=== PATIENT | female | born 1995 | race African-American/Black ===

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

== ENCOUNTER 2017-07-26 21:01 | Emergency (ER) | payer OTHER ==
[~2017-07-26] VITALS: Ht 163.8 cm; Wt 71.6 kg
[2017-07-26 21:08] VITALS: TEMP 37.1; Ht 163.8 cm; Wt 71.6 kg
[2017-07-26] MEDS ORDERED: MoRPHine SULFATE 4 MG/ML 1 ML CARP\\VIAL IV ONE (21:30)
--- NOTE | 2017-07-26 22:08 | DIAGNOSTIC IMAGING REPORT ---
RIGHT ANKLE MIN 3 VIEWS ROUTINE HISTORY: 21 years-old Female acute right ankle pain without reported trauma. COMPARISON: None available TECHNIQUE: 3 views of the right ankle FINDINGS: There is no acute fracture, dislocation or significant degenerative changes. No osteochondral defect identified. There is moderate anterolateral soft tissue swelling with small joint effusion. IMPRESSION: 1. No acute bony abnormality. 2. Moderate anterolateral soft tissue swelling with small joint effusion. The above report was generated using voice recognition software. It may contain grammatical, syntax or spelling errors. Electronically signed by: Mart Goldstein M.D. 07/26/2017 10:07 PM Dictated Date/Time: 07/26/2017 10:05 PM
[2017-07-26] MEDS ORDERED: IBUP-1451 PO (22:28)
[2017-07-26 22:42] VITALS: BP 150/95; PULSE 98; O2SAT 98
--- NOTE | 2017-07-27 14:35 | EMERGENCY ROOM VISIT NOTE ---
ED Visit Note First contact with patient: 21:05 CHIEF COMPLAINT: Ankle pain HISTORY OF PRESENT ILLNESS: This 21-year-old female patient presents to the emergency department via EMS after sustaining an injury to the right ankle and foot with a twisting, inversion motion while playing volleyball just prior to arrival. She states that she was doing a jump serve, and as she came down she twisted her ankle about 30 minutes ago. The patient complains of pain along the outside of the ankle. The patient is without pain of the foot. The patient rates the pain as dull and 7/10. The patient is not able to bear weight on the foot. Constant pain, worse with movement, weight bearing, and the dependent position. No knee pain, the patient is able to move their toes. No numbness or weakness of the foot, no laceration. The patient has not had a previous fracture to this ankle. The patient has had morphine prehospital for the pain. The patient denies any other injury. REVIEW OF SYSTEMS: A 6 system review of systems was completed with positives and pertinent negatives listed in the HPI. ALLERGIES: No known allergies MEDICATIONS: No chronic medications PMH: Otherwise healthy SOCIAL HISTORY: Student and lives locally PHYSICAL EXAM: Vital Signs: Reviewed Nurse's notes, vital signs stable. GENERAL : Female, no acute distress, but appears in pain, well-developed, well- nourished. MENTAL STATUS: Alert, oriented to person place and time, and cooperative. MUSCULOSKELETAL: The right ankle is swollen and tender over the lateral malleolus, but the skin is intact and there is no ligamentous instability. There is no fifth metatarsal tenderness. There is no tenderness over the rest of the foot. There is no calf or tibia/fibular tenderness. There is no visual deformity. The foot and toes are warm and well-perfused. Dorsalis pedis pulse 2+. Sensation to pain and light touch is intact. Capillary refill less than 2 seconds. RIGHT ANKLE MIN 3 VIEWS ROUTINE HISTORY: 21 years-old Female acute right ankle pain without reported trauma. COMPARISON: None available TECHNIQUE: 3 views of the right ankle FINDINGS: There is no acute fracture, dislocation or significant degenerative changes. No osteochondral defect identified. There is moderate anterolateral soft tissue swelling with small joint effusion. IMPRESSION: 1. No acute bony abnormality. 2. Moderate anterolateral soft tissue swelling with small joint effusion. EMERGENCY DEPARTMENT COURSE: Physical exam and history were performed. Nursing notes and EMR were reviewed. The patient appears to have injured herself playing volleyball just prior to arrival. She was given a small amount of morphine here in the department as she has significant swelling of the ankle. Ice packs were placed and x-ray was performed. X-ray does not show evidence of acute fracture or dislocation. The patient was placed in a gel ankle splint and given crutches. She is to follow with orthopedics for her symptoms. She was given additional discharge instructions as below and was pleased with plan of care. Current/Historical Medications Scheduled Control Pills ( Control Pills), 1 TAB PO QPM Scheduled PRN Ibuprofen Tab (Motrin), 800 MG PO Q8H PRN for Pain Allergies Coded Allergies: No Known Allergies (Unverified , 07/26/17) Vital Signs Date Time Temp Pulse Resp B/P (MAP) Pulse Ox O2 Delivery O2 Flow Rate FiO2 07/26/17 22:42 98 18 150/95 98 Room Air 07/26/17 21:08 37.1 94 20 140/89 97 Room Air Medications Administered Medications (Trade) Dose Ordered Sig/Pedrito Route Start Time Stop Time Status Last Admin Dose Admin Morphine Sulfate (MoRPHine SULFATE INJ) 4 mg NOW ONCE IV 07/26/17 21:30 07/26/17 21:31 DC 07/26/17 21:22 4 MG Departure Information Impression Primary Impression: Injury of left ankle Dispostion Home / Self-Care Condition FAIR Prescriptions Ibuprofen Tab (MOTRIN) 800 Mg Tab 800 MG PO Q8H Y for Pain, #50 TAB Prov: Lb Rankin PA-C 07/26/17 Referrals [facility] (PCP) Gerald Lorenzo, DO Forms HOME CARE DOCUMENTATION FORM, IMPORTANT VISIT INFORMATION Patient Instructions My [facility] Additional Instructions You were seen and evaluated today on an emergency basis only. This is not a substitute for, or an effort to provide, complete comprehensive medical care. It is not possible to recognize and treat all injuries or illnesses in a single emergency department visit. For this reason it is recommended that you followup with Orthopedics, Dr Lorenzo's office, in 1-2 weeks if symptoms persist. Take ibuprofen 800 mg every 8 hours as needed for breakthrough pain. Take this medication with food. Do not take for more than 4 or 5 consecutive days. Use your gel ankle splint and crutches You are welcome to return to the emergency department anytime with new, worsening, or concerning symptoms.
== END 2017-07-26 22:40 | disposition home or self-care (01) ==
LOC: EDBD 21:01 → C.EDC 21:03
DX: S99.911A Unspecified injury of right ankle, initial encounter (principal); X50.0XXA Overexertion from strenuous movement or load, initial encounter; Y93.68 Activity, volleyball (beach) (court); Z79.3 Long term (current) use of hormonal contraceptives

== ENCOUNTER → 2017-08-13 | Outpatient (CLI) | payer OTHER ==
[~2017-08-13] MED LIST changes: -CETI10TA84 PO; +IBUP-1451 PO
--- NOTE | 2017-08-13 09:20 | DIAGNOSTIC IMAGING REPORT ---
RIGHT LOWER EXT JOINT WITHOUT CLINICAL HISTORY: ANKLE SPRAIN AND PAIN Right pain TECHNIQUE: Multi axial MRI acquisition COMPARISON STUDY: None FINDINGS: Findings of moderate generalized soft tissue edematous change. Evidence for bone marrow edema involving the bulk of the talus. Focus of increased activity posterior aspect distal tibia as well as medial malleolus. Subtalar joint appears to be intact. The collateral ligaments are intact. All major ligamentous and tendinous structures appear to be intact. Trace amount of fluid surrounding the peroneal tendon although again this structure appears to be intact. Minimal joint effusion. IMPRESSION: 1. Nonspecific generalized bone marrow edema of the bulk of the talus as well as components of the medial malleolus and posterior tibia. 2. Although given the patient's age this most likely is posttraumatic, possibility of a atypical component of reflex sympathetic dystrophy cannot be entirely excluded. 3. No major ligamentous or tendinous disruption 4. No evidence for significant bony substance loss The above report was generated using voice recognition software. It may contain grammatical, syntax or spelling errors. Electronically signed by: Randal Jones M.D. 08/13/2017 9:18 AM Dictated Date/Time: 08/13/2017 9:12 AM
== END | disposition home or self-care (01) ==
LOC: C.MRI 07:45
PROVIDERS: ATTEND Family Medicine Sports Medicine
DX: S93.431D Sprain of tibiofibular ligament of right ankle, subsequent encounter (principal); M25.571 Pain in right ankle and joints of right foot; X58.XXXD Exposure to other specified factors, subsequent encounter

== ENCOUNTER 2017-10-30 13:20 | Emergency (ER) | payer OTHER ==
[~2017-10-30] VITALS: Ht 165.1 cm; Wt 70.3 kg
[2017-10-30 13:28] VITALS: TEMP 37.2; Ht 165.1 cm; Wt 70.3 kg
[2017-10-30] MEDS ORDERED: KETOROLAC TROMETHAMINE 30 MG/ML VIAL IV STA (13:48)
[2017-10-30] MEDS ORDERED: DEXAMETHASONE INJ 10 MG in SYRINGE 0 ML IV ONE (14:00)
[2017-10-30] MEDS ORDERED: SODIUM CHLORIDE 0.9% 1000ML 1,000 ML IV ONE (14:00)
[2017-10-30 14:13] LABS: BASO % 0.1 %; BASO ABS # 0.01 K/uL (0-0.2); COMPLETE YES; EOS % 0.1 %; HEMATOCRIT 36.5 % (37-47); IG% 0.2 %; LYMPH % 5.7 %; LYMPH ABS # 0.84 K/uL (1.2-3.4); MEAN CELL VOLUME 93.1 fL (80-100); MEAN CORPUSCULAR HEMOGLOBIN 30.9 pg (25-34); MEAN CORPUSCULAR HGB CONC 33.2 g/dl (32-36); MEAN PLATELET VOLUME 9.4 fL (7.4-10.4); NEUT % 86.9 %; PLATELET COUNT 263 K/uL (130-400); RED BLOOD COUNT 3.92 M/uL (4.2-5.4); WHITE BLOOD COUNT 14.76 K/uL (4.8-10.8)
[2017-10-30 14:30] LABS: BUN/CREATININE RATIO 6.8 (10-20); CALCIUM 8.7 mg/dl (8.5-10.1); CREATININE 0.87 mg/dl (0.60-1.20); POTASSIUM 3.5 mmol/L (3.5-5.1)
[2017-10-30] MEDS ORDERED: [UNRECOGNIZED DRUG - OTHER] PO (14:37)
[2017-10-30] MEDS ORDERED: CETI10TA84 PO (14:37)
[2017-10-30] MEDS ORDERED: VNTHFA/IN INH (14:37)
[2017-10-30] MEDS ORDERED: AMOX875T3 PO (15:26)
[2017-10-30 15:53] VITALS: BP 104/53; PULSE 76; O2SAT 95
[2017-10-30 15:58] LABS: INFLUENZA A PCR Neg for Influ A (NEG); INFLUENZA B PCR Neg for Influ B (NEG)
--- NOTE | 2017-10-30 20:24 | EMERGENCY ROOM VISIT NOTE ---
ED Visit Note First contact with patient: 13:34 Chief Complaint: Headache, sore throat and fever. History of Present Illness: Ms. Saleh is a 21-year-old female who ambulates into the ED complaining of headache, sore throat, fever and neck/back pain. Patient reports her symptoms started last night approximately 10 PM. She reports she had a global headache. She describes it as an achy sensation. She reports at that time her headache was 4/10. She did not identify any aggravating or alleviating factors related to the pain. She took ibuprofen and reports going to sleep. She reports taking her temperature last night and it was 102.4 Fahrenheit. This morning when she woke her headache was still present and she noted a sore throat and neck/thoracic/lumbar back achiness. She reports taking ibuprofen and going back to bed. She woke up at 2 and 4 hours later and continued to have the same symptoms. Currently she still complains of a headache. She describes it as global. She describes it as a throbbing achy sensation. She rates her discomfort 8/10. Her pain is nonradiating. She has not identified any aggravating or alleviating factors related to the pain. She has not taken any additional medication since ibuprofen this morning when she woke. Additionally she complains of a sore throat. She describes this as a fullness sensation over the anterior aspect of the throat. She rates this discomfort 4/ 10. The pain is nonradiating. Her pain mildly worsens with swallowing. She is not identified any alleviating factors related to the pain. Additionally she denies of a soreness from the cervical throughout the lumbar back. She rates this discomfort 4/10. She has not identified any aggravating or alleviating factors related to the pain. She denies skin eruptions, skin color changes, recent head trauma, dizziness, lightheadedness, visual changes, hearing changes, ear drainage, voice changes, inability to swallow, painful talking, drooling, neck/back stiffness, cough, wheezing, shortness of breath, abdominal pain, nausea, vomiting, extremity weakness/numbness/tingling. Review of Systems: As noted above in history of present illness. All body systems were reviewed and found to be negative as noted above. Past Medical History: Patient denies. Current Medications: control, Zyrtec, albuterol. Allergies to Medications: Patient denies. 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 Physical Examination: Vital Signs: Date Time Temp Pulse Resp B/P (MAP) Pulse Ox O2 Delivery O2 Flow Rate FiO2 10/30/17 15:53 76 15 104/53 95 10/30/17 15:19 76 15 104/53 95 Room Air 10/30/17 14:10 95 16 115/70 98 Room Air 10/30/17 13:28 37.2 117 18 119/69 97 Room Air GENERAL: 21-year-old female in mild distress due to pain, nontoxic-appearing, febrile and hemodynamically stable. NEUROLOGICAL: Awake, alert and oriented to person, place and time. Answering questions appropriately and following commands. Normal gait. Good hand eye coordination. SKIN: Warm, dry and pink. No soft tissue eruptions or trauma noted. HEENT: Atraumatic and normocephalic. No erythema or tenderness over the frontal or maxillary sinuses. External ears are nontender. Auditory canals are pink and patent. Tympanic membranes are pearly peters with normal light reflex; no erythema or bulging. PERRLA. Sclera white and conjunctiva pink without drainage. No drainage from naris. Airway patent. Uvula was midline and no abscesses are seen. Posterior pharyngeal area is moderately erythematous and edematous. Bilateral tonsillar hypertrophy with puslike exudates. Speech is soft but normal and clear. Mild anterior cervical lymphadenopathy. Trachea midline. No jugular venous distention. No laryngeal tenderness. BACK: Mild tenderness throughout the paraspinous musculature in the cervical, thoracic and lumbar spine. No nuchal rigidity or meningismus. No palpable muscle spasm. Full range of motion of the cervical spine. No CVA tenderness. THORAX: Lungs sounds are clear to auscultation and equal bilaterally with symmetrical chest wall. No wheezing, rales or rhonchi. HEART: Tachycardic rate and rhythm. No gallops, rubs or murmurs are appreciated. ABDOMEN: Flat, soft and nontender. Positive bowel sounds in all quadrants. No guarding, rigidity or organomegaly. EXTREMITIES: Moves all extremities well on command and with purpose. All distal neurovascular statuses are intact and equal bilaterally. No calf tenderness or cords. ED Course: Patient is assessed as noted above. Patient's medication list was reviewed. Laboratory Testing: Test 10/30/17 14:00 10/30/17 14:08 Range/Units Influenza Type A (RT-PCR) Neg for Influ A NEG Influenza Type A Antigen Neg for Influ A NEG Influenza Type B Antigen Neg for Influ B NEG Influenza Type B (RT-PCR) Neg for Influ B NEG White Blood Count 14.76 4.8-10.8 K/uL Red Blood Count 3.92 4.2-5.4 M/uL Hemoglobin 12.1 12.0-16.0 g/dL Hematocrit 36.5 37-47 % Mean Corpuscular Volume 93.1 80-100 fL Mean Corpuscular Hemoglobin 30.9 25-34 pg Mean Corpuscular Hemoglobin Concent 33.2 32-36 g/dl Platelet Count 263 130-400 K/uL Mean Platelet Volume 9.4 7.4-10.4 fL Neutrophils (%) (Auto) 86.9 % Lymphocytes (%) (Auto) 5.7 % Monocytes (%) (Auto) 7.0 % Eosinophils (%) (Auto) 0.1 % Basophils (%) (Auto) 0.1 % Neutrophils # (Auto) 12.83 1.4-6.5 K/uL Lymphocytes # (Auto) 0.84 1.2-3.4 K/uL Monocytes # (Auto) 1.04 0.11-0.59 K/uL Eosinophils # (Auto) 0.01 0-0.5 K/uL Basophils # (Auto) 0.01 0-0.2 K/uL RDW Standard Deviation 45.1 36.4-46.3 fL RDW Coefficient of Variation 13.4 11.5-14.5 % Immature Granulocyte % (Auto) 0.2 % Immature Granulocyte # (Auto) 0.03 0.00-0.02 K/uL Sodium Level 132 136-145 mmol/L Potassium Level 3.5 3.5-5.1 mmol/L Chloride Level 103 98-107 mmol/L Carbon Dioxide Level 27 21-32 mmol/L Anion Gap 2.0 3-11 mmol/L Blood Urea Nitrogen 6 7-18 mg/dl Creatinine 0.87 0.60-1.20 mg/dl Est Creatinine Clear Calc Drug Dose 102.3 ml/min Estimated GFR () 111.9 Estimated GFR (Non- 96.6 BUN/Creatinine Ratio 6.8 10-20 Random Glucose 96 70-99 mg/dl Calcium Level 8.7 8.5-10.1 mg/dl Monoscreen NEG NEG Group A Streptococcus Screen: Positive. Patient was hydrated with normal saline and received 30 mg of Toradol IV for fever and pain and 10 mg of Decadron IV for tonsillar swelling. Patient was reassessed multiple times during her stay in the emergency department. Patient's case was reviewed with Dr. Manzanares; we agreed on diagnostic approach, treatment, disposition and plan. Patient was educated about today's findings and instructed on her treatment plan ; she verbalized understanding and agreement with this plan. Clinical Impression: Acute streptococcal pharyngitis. Disposition: Patient discharged home in stable condition; prior to departure she was reassessed and subjectively reported she was feeling much better and rated her discomfort 4/10. Plan: Patient was encouraged to alternate ibuprofen and acetaminophen every 3 hours as needed for pain or fevers. Patient was prescribed amoxicillin 875 mg 3 times a day for 10 days. Patient was encouraged to stay well-hydrated with increased clear fluids. Patient was encouraged use a liquid or mechanical soft diet until resolution of throat discomfort. Patient was encouraged to follow-up at [facility] for recheck. Patient was encouraged return ED for worsening/uncontrolled pain, inability to swallow, uncontrolled fevers, vomiting, drooling, painful talking or any new/ concerning symptoms.
== END 2017-10-30 15:54 | disposition home or self-care (01) ==
LOC: C.EDB 13:21 → C.EDC 15:54
DX: J02.0 Streptococcal pharyngitis (principal); Z79.3 Long term (current) use of hormonal contraceptives

== ENCOUNTER 2018-02-20 16:19 | Emergency (ER) | payer OTHER ==
[~2018-02-20] VITALS: Ht 165.1 cm; Wt 73.4 kg
[~2018-02-20 16:19] MED LIST changes: +CETI10TA84 PO; -IBUP-1451 PO; +VNTHFA/IN INH; +[UNRECOGNIZED DRUG - OTHER] PO
[2018-02-20 16:29] VITALS: BP 158/90; PULSE 83; TEMP 36.7; O2SAT 98; Ht 165.1 cm; Wt 73.4 kg
[2018-02-20] MEDS ORDERED: ACETAMINOPHEN 500 MG TAB PO ONE (18:30)
[2018-02-20] MEDS ORDERED: MoRPHine SULFATE 4 MG/ML 1 ML CARP\\VIAL ONE (19:35)
--- NOTE | 2018-02-20 22:14 | EMERGENCY ROOM VISIT NOTE ---
History First contact with patient: 17:41 Chief Complaint: HEADACHE Stated Complaint: PRESSURE BEHIND EYES, MIGRAINE, NAUSEA, VOMITING History of Present Illness The patient is a 22 year old female who presents to the Emergency Room with complaints of headache. She had recently started a course of Augmentin 3 days ago for presumed sinusitis from [facility]. Since starting the antibiotic she developed a sudden onset headache which started a day ago and has not gotten better. She reports the headache is bilateral and frontal. It is sharp and 8/10 in severity, and does not radiate. She has associated nausea but has not vomited. She denies any history of blood thinner use or previous headaches. She is otherwise healthy. Nothing has made her symptoms better or worse. She denies any numbness or tingling in the arms or legs. Review of Systems See HPI for pertinent positives & negatives. A total of 10 systems reviewed and were otherwise negative. Past Medical/Surgical History Medical Problems: (1) No Known Active Medical Problems Family History No pertinent FHx Social History Smoking Status: Never Smoker Alcohol Use: occasionally Housing Status: lives with roommate Occupation Status: [employer] student Current/Historical Medications Scheduled Control Pills ( Control Pills), 1 TAB PO QPM Cetirizine (Zyrtec), 10 MG PO QPM [Acid Reflux Rx], 1 TAB PO DAILY Scheduled PRN Albuterol Hfa (Ventolin Hfa), 2-4 PUFFS INH Q6H PRN for SOB/Wheezing Allergies NKDA Physical Exam Vital Signs Date Time Temp Pulse Resp B/P (MAP) Pulse Ox O2 Delivery O2 Flow Rate FiO2 02/20/18 16:29 36.7 83 20 158/90 98 Room Air Physical Exam GENERAL: Awake, alert, well-appearing, in no acute distress HENT: Normocephalic, atraumatic. Oropharynx unremarkable. EYES: Normal conjunctiva. Sclera non-icteric. NECK: Supple. No nuchal rigidity. FROM. No JVD. RESPIRATORY: Clear to auscultation. CARDIAC: Regular rate, normal rhythm. Extremities warm and well perfused. Pulses equal. ABDOMEN: Soft, non-distended. No tenderness to palpation. No rebound or guarding. No masses. MUSCULOSKELETAL: Chest examination reveals no tenderness. The back is symmetrical on inspection without obvious abnormality. There is no CVA tenderness to palpation. No joint edema. LOWER EXTREMITIES: Calves are equal size bilaterally and non-tender. No edema. No discoloration. NEURO: Normal sensorium. No sensory or motor deficits noted. SKIN: No rash or jaundice noted. Medical Decision & Procedures ER Provider Diagnostic Interpretation: CT HEAD Impression: No acute intracranial abnormality. Mild left frontal and ethmoid sinus mucosal thickening Medications Administered 1L NSS 500mg PO Tylenol 4mg IV Morphine Sulfate ED Course 17:30: I examined the patient in room C10. A complete history and physical were performed. 17:40: I discussed the case w/Dr Monge, Attending physician. I ordered a saline lock and 1L NSS IV. 18:10: I ordered a CT head without contrast to evaluate for intracranial bleed. 18:25: I checked on the patient again. Her pain had worsened, so I gave her a dose of Tylenol 500mg PO x 1. 19:00: I checked on the patieng again, she was feeling a little better. 19:25: The RN informed me the patients pain had worsened again. I gave her a dose of 4mg Morphine IV. 20:00: I informed the patient her CT was negative. She was discharged home in good condition. Medical Decision 22 yo F with headache - ddx includes: sinus headache, migraine, cluster headache , intracranial bleed, dehydration, electrolyte abnormality, sepsis. She had an IV placed and fluids. She had a CT scan which ruled out a bleed and showed thickening in her sinuses consistent w/sinusitis. She was advised to continue her course of Augmentin and use sinus rinses to help clean out her sinuses. She was discharged home in good condition. All questions were answered. Impression Primary Impression: Headache Departure Information Dispostion Home / Self-Care Condition GOOD Referrals No Doctor, Assigned (PCP) Patient Instructions My [facility]
--- NOTE | 2018-02-20 22:59 | EMERGENCY ROOM VISIT NOTE ---
ED Visit Note First contact with patient: 17:41 Resident Physician Supervision Note: I was present with Dr. Reid during the history and exam. I discussed the case with the resident and agree with the findings and plan as documented in the note. Documented By: Deric Monge
--- NOTE | 2018-02-21 07:03 | DIAGNOSTIC IMAGING REPORT ---
HEAD WITHOUT CONTRAST (CT) CT DOSE: HISTORY: Headache HEAD W/O , DOWNTIME TECHNIQUE: Multiaxial CT images of the head were performed without the use of intravenous contrast. A dose lowering technique was utilized adhering to the principles of ALARA. Comparison: 12/31/2016 Findings: Mild mucosal thickening left ethmoid sinus and frontal sinus. The calvarium and skull base are intact. The ventricles and sulci are within normal limits. There is no mass, hematoma, midline shift, or acute infarct. Impression: No acute intracranial abnormality. Mild left frontal and ethmoid sinus mucosal thickening The above report was generated using voice recognition software. It may contain grammatical, syntax or spelling errors. Electronically signed by: Randal Jones M.D. 02/21/2018 7:01 AM Dictated Date/Time: 02/21/2018 7:00 AM
== END 2018-02-20 20:30 | disposition home or self-care (01) ==
LOC: C.EDB 16:21 → C.EDC 20:30
DX: R51 Headache (principal)

== ENCOUNTER 2018-03-19 02:54 | Emergency (ER) | payer OTHER ==
[~2018-03-19] VITALS: Ht 165.1 cm; Wt 73.5 kg
[2018-03-19 02:57] VITALS: TEMP 36.7; Ht 165.1 cm; Wt 73.5 kg
[2018-03-19] MEDS ORDERED: RANITIDINE HCL 150 MG TAB PO STA (03:14)
[2018-03-19] MEDS ORDERED: DiphenhydrAMINE HCL 50 MG/ML VIAL IV STA (03:14)
[2018-03-19 04:31] VITALS: BP 98/55; PULSE 59; O2SAT 99
--- NOTE | 2018-03-19 06:55 | EMERGENCY ROOM VISIT NOTE ---
History Report prepared by Luis Manuel: Mao Vance Under the Supervision of: Dr. Sophia Phillips D.O. First contact with patient: 03:01 Chief Complaint: ALLERGIC REACTION Stated Complaint: HIVES,TIGHTNESS IN CHEST History of Present Illness The patient is a 22 year old female who presents to the Emergency Room for the presence of a constant rash for the past 1.5 weeks. The patient notes that she has been experiencing a rash diffusely across her neck, extremities and trunk. She awoke from sleep this morning with the rash present along with "tightness in her chest." She denies any shortness of breath. The patient has been taking Benadryl which has improved the rash at times. She denies any history of anxiety , or anxiety related rashes. She also denies any new detergents, soaps, or skin products. Source of History: patient Onset: 1.5 weeks Position: neck, chest, arm (bilateral), leg (bilateral) Quality: other (Rash present in all locations mentioned) Timing: constant Associated Symptoms: + chest pain (tightness), No SOB Review of Systems See HPI for pertinent positives & negatives. A total of 10 systems reviewed and were otherwise negative. Past Medical & Surgical Medical Problems: (1) No Known Active Medical Problems Family History Cancer Diabetes mellitus Hypertension Social History Smoking Status: Never Smoker Alcohol Use: occasionally Housing Status: lives with roommate Occupation Status: [employer] student Current/Historical Medications Scheduled Control Pills ( Control Pills), 1 TAB PO QPM Cetirizine (Zyrtec), 10 MG PO QPM [Acid Reflux Rx], 1 TAB PO DAILY Scheduled PRN Albuterol Hfa (Ventolin Hfa), 2-4 PUFFS INH Q6H PRN for SOB/Wheezing Allergies Coded Allergies: No Known Allergies (Unverified , 03/19/18) Physical Exam Vital Signs Date Time Temp Pulse Resp B/P (MAP) Pulse Ox O2 Delivery O2 Flow Rate FiO2 03/19/18 04:31 59 15 98/55 99 03/19/18 03:10 98 Room Air 03/19/18 02:57 36.7 99 18 150/87 100 Room Air Physical Exam HEENT: Head - normocephalic and atraumatic Pupils are equal, round, and reactive to light. Extraocular eye muscles are intact, and sclera are anicteric. Nose - moist nasal mucosa without discharge. Mouth - moist buccal mucosa. Oropharynx is nonerythematous and there is no tonsillar exudate or edema noted. Neck: Supple; no JVD, nuchal rigidity, cervical lymphadenopathy. Heart: Regular rate and rhythm. There is a normal S1 and S2 with no murmurs, clicks, or gallops appreciated. Lungs: Clear to auscultation bilaterally with no wheezes, rales, or rhonchi. Abdomen: Soft, completely nontender, nondistended, with good bowel sounds. There are no palpable pulsatile masses or hepatosplenomegaly. There is no guarding, rigidity, or rebound noted. Extremities: No evidence of cyanosis, clubbing, or edema. There are easily palpable peripheral pulses. Skin: There is diffuse urticarial rash about her extremities, neck, and chest. Medical Decision & Procedures Medications Administered Medications (Trade) Dose Ordered Sig/Pedrito Route Start Time Stop Time Status Last Admin Dose Admin Diphenhydramine HCl (Benadryl Inj) 25 mg NOW STAT IV 03/19/18 03:14 03/19/18 03:15 DC 03/19/18 03:37 25 MG Ranitidine HCl (zANTac TAB) 150 mg NOW STAT PO 03/19/18 03:14 03/19/18 03:15 DC 03/19/18 03:29 150 MG Procedure IV Benadryl Oral Zantac ED Course 0309: Past medical records reviewed. The patient was evaluated in room B2. A complete history and physical exam was performed. IV lock initiated 0314: Ordered Benadryl 25 mg IV, zANTac 150 mg PO. 0422:: Upon reevaluation, she is feeling much better. I discussed findings and results with the patent. She verbalized agreement of the treatment plan. The patient was discharged home. Medical Decision The patient is a 22 year old female who presents to the emergency department for a rash and chest tightness. Differential Diagnosis include; urticaria, allergic reaction. anaphylaxis, anxiety. This is a 22-year-old female patient presents to the emergency department with a rash about her arms and legs and chest. Patient has significant itch. The rash appears to be consistent with acute urticaria. The patient is unsure of any new exposures or allergens. The patient is extremely anxious on presentation and is crying. The patient had complete resolution of her symptoms after receiving IV Benadryl and oral Zantac. Medication Reconcilliation Current Medication List: was personally reviewed by me Blood Pressure Screening Patient's blood pressure: Elevated blood pressure Blood pressure disposition: Elevated BP felt to be situational Impression Primary Impression: Urticaria Scribe Attestation The scribe's documentation has been prepared under my direction and personally reviewed by me in its entirety. I confirm that the note above accurately reflects all work, treatment, procedures, and medical decision making performed by me. Departure Information Dispostion Home / Self-Care Referrals No Doctor, Assigned (PCP) Forms HOME CARE DOCUMENTATION FORM, IMPORTANT VISIT INFORMATION Patient Instructions [facility] Additional Instructions Rest. Take benadryl - 50mg every 6 hours along with zantac 75mg Follow up at [facility] if hives continue. Limit stress and anxiety
== END 2018-03-19 04:31 | disposition home or self-care (01) ==
LOC: C.EDB 02:55
DX: L50.9 Urticaria, unspecified (principal); Z79.3 Long term (current) use of hormonal contraceptives